=== PATIENT | male | born 1990 | race Caucasian/White ===

== ENCOUNTER 2020-08-08 22:37 | Emergency (ER) | payer SELFPAY ==
--- NOTE | 2020-08-09 00:01 | ER Document Report ---
ED General - General Chief Complaint: Accidental Overdose Stated Complaint: POSS OVERDOSE Time Seen by Provider: 08/08/20 23:57 - HPI Notes: 30-year-old male presents following accidental overdose at home. Patient uses IV heroin. He states that he thinks it was probably fentanyl that he injected today as he used the normal amount he typically does. He states he was sober for the past few months however has recently relapsed and started using again. Patient received 4 mg nasal Narcan and 1 mg IV Narcan with return of spontaneous respirations at his mother's house. Patient currently denies complaints. - Related Data Home Medications: Pt. unable to remember at this time Past Medical History - General Information source: Patient - Social History Smoking Status: Current Every Day Smoker Chew tobacco use (# tins/day): No Frequency of alcohol use: None Drug Abuse: Heroin, Methamphetamine Family History: Reviewed & Not Pertinent Patient has homicidal ideation: No Review of Systems - Review of Systems Constitutional: No symptoms reported EENT: No symptoms reported Cardiovascular: denies: Chest pain Respiratory: denies: Cough, Short of breath Gastrointestinal: No symptoms reported Genitourinary: No symptoms reported Male Genitourinary: No symptoms reported Musculoskeletal: No symptoms reported Skin: No symptoms reported Hematologic/Lymphatic: No symptoms reported Neurological/Psychological: No symptoms reported Physical Exam - Vital signs Vitals: Temp 98.6 F 08/08/20 22:38 - General General appearance: Appears well, Alert In distress: None - HEENT Head: Normocephalic, Atraumatic Extraocular movements intact: Yes Pupils: PERRL - Respiratory Chest status: Nontender Breath sounds: Normal - Cardiovascular Rhythm: Regular Heart sounds: Normal auscultation - Abdominal Tenderness: Nontender - Extremities General upper extremity: Normal ROM General lower extremity: Normal ROM - Neurological Neuro grossly intact: Yes Cognition: Normal Orientation: AAOx4 - Psychological Associated symptoms: Normal affect - Skin Skin Temperature: Warm Course - Re-evaluation Re-evalutation: 30-year-old male presents after accidental overdose of opioids, heroin vs fentanyl, received Narcan prior to arrival. Patient is alert and oriented, lungs are clear, hemodynamically stable. Will observe patient in the emergency department. 08/09/20 02:44 Patient has been observed for greater than 3 hours in the emergency department, he has not required any redosing of Narcan, no adverse events. He is 98% on room air. He is appropriate for discharge at this time. Have prescribed Narcan. - Vital Signs Vital signs: Temp Pulse Resp BP Pulse Ox 98.6 F 29 H 140/101 H 97 08/08/20 22:38 08/08/20 23:01 08/09/20 00:01 08/09/20 00:01 - Laboratory Results Critical Laboratory Results Reviewed: No Critical Results - Radiology Results Critical Radiology Results Reviewed: No Critical Results Discharge - Discharge Clinical Impression: Accidental heroin overdose Qualifiers: Encounter type: initial encounter Qualified Code(s): T40.1X1A - Poisoning by heroin, accidental (unintentional), initial encounter Disposition: HOME, SELF-CARE Additional Instructions: Please avoid use of heroin in the future. I have prescribed Narcan in case another overdose occurs. Return to the emergency department for any concerning worsening symptoms. Prescriptions: Naloxone HCl 2 mg IJ ASDIR PRN #2 auto.injct PRN Reason:
[2020-08-09 09:01] VITALS: BP 139/72
--- NOTE | 2020-08-11 22:40 | EKG REPORT ---
SEVERITY:- OTHERWISE NORMAL ECG - SINUS TACHYCARDIA : Confirmed by: Asia Brooks 11-Aug-2020 22:39:25
== END 2020-08-09 09:01 | disposition home or self-care (01) ==
LOC: ER 22:37
DX: T40.1X1A Poisoning by heroin, accidental (unintentional), initial encounter (principal); Y92.002 Bathroom of unspecified non-institutional (private) residence as the place of occurrence of the external cause; F15.10 Other stimulant abuse, uncomplicated; F17.200 Nicotine dependence, unspecified, uncomplicated
CPT/HCPCS: 93005; 93010; 99283